=== PATIENT | female | born 1980 | race Caucasian/White ===

== ENCOUNTER → 2016-12-31 | Outpatient (CLI) | payer BC | END | disposition home or self-care (01) | LOC: GMAJ 16:34 | PROVIDERS: ATTEND Family Medicine | DX: R03.0 Elevated blood-pressure reading, without diagnosis of hypertension (principal) ==

== ENCOUNTER → 2017-03-17 | Outpatient (CLI) | payer BC ==
--- NOTE | 2017-03-18 14:51 | RAD ---
2 view abdomen. Indication: EPIGASTRIC PAIN Comparison: None. Impression: No free air. Bowel gas pattern nonspecific. No abnormal calcifications. No acute osseous abnormality. Electronically signed by: Armando Adhikari MD 03/18/2017 2:50 PM [employer]ACTOR [employer]PER[employer]
== END ==
LOC: RAD 16:18
PROVIDERS: ATTEND Surgery
DX: R10.13 Epigastric pain (principal)

== ENCOUNTER → 2017-07-09 | Outpatient (CLI) | payer BC ==
--- NOTE | 2017-07-09 10:50 | US ---
EXAM DESCRIPTION: Gall Bladder: ULTRASOUND. CLINICAL HISTORY: RUQ PAIN COMPARISON: None. TECHNIQUE: Transabdominal scannin-dimensional and Doppler modes. FINDINGS: Gallbladder: Contains multiple echogenic stones which are mobile with patient change in position. Largest stone 1.6 cm diameter. No fluid around the gallbladder. No wall thickening. 2.7 mm. Non-tender with transducer pressure. Common bile duct: caliber 3.0 mm within normal limits. Liver: Increased echogenicity; contour liver capsule smooth where seen. No fluid around the liver. Intrahepatic biliary ducts normal caliber. Doppler hepatopedal flow portal vein.. Long axis right lobe subjectively enlarged. Possible heterogeneous mass 4.8 x 3.6 cm in the "caudate" lobe nonvascular. Ill-defined hypoechoic lesion in the upper lobe measuring 2.1 x 1.8 cm nonvascular. Pancreas: normal size and echogenicity. Duct not seen. Proximal abdominal aorta: Not seen. IVC: visualized and normal caliber. Right kidney: long axis measures 11.9 cm. Normal Echogenicity. Normal cortical thickness. No hydronephrosis IMPRESSION: 1. Multiple gallstones, largest 1.6 cm, mobile. No tenderness with transducer pressure. No wall thickening or fluid. Normal caliber common bile duct. 2. Steatosis of the liver and mild hepatomegaly. Possible nonvascular masses in the superior right lobe and in the "caudate" lobe. No intrahepatic biliary dilatation. No ascites. Normal vascularity. Consider follow-up triple phase noncontrast and contrast CT scan for further evaluation. 2. Normal ultrasound of the pancreas and right kidney. CRITICAL COMMUNICATION: The critical value was discussed directly by phone with Dr. Anuel Drew at approximately 1045 hours, on 07/09/2017. Electronically signed by: Sumeet Connell MD 07/09/2017 10:49 AM [facility]
--- NOTE | 2017-07-09 15:49 | CT ---
EXAM DESCRIPTION: Abdomen w/wo Contrast: Computed tomography. CLINICAL HISTORY: LIVER MASS COMPARISON: Liver ultrasound earlier today. TECHNIQUE: Spiral-axial scans at 5.0 mm intervals through the abdomen before and after fall - phase post nonionic IV contrast: Arterial, portal, and delayed. No oral contrast. Coronal and sagittal 2.0 mm reconstructions. Delayed 10 minute helical axial 5.0 mm scans, liver through the upper pelvis. No adverse reactions. FINDINGS: Lung bases and pleura: Negative. Liver, stomach, adrenal glands, and spleen: On the precontrast image, there is a vague low-density in the lateral superior right liver lobe. This measures approximately 2.3 x 1.8 cm. In the caudate lobe is a low-density object measuring 4.0 x 3.0 cm. On the arterial phase images, the lesion in the subcapsular lateral right lobe is partially enhancing laterally. The mass in the caudate lobe shows trace enhancement superiorly and inferiorly slightly more enhancement with most of the mass, and the central medial and lateral margins remaining low-density. On the portal venous phase images, the lesion in the subcapsular lateral right lobe is partially enhancing posteriorly and inferiorly. The mass in the caudate lobe is enhancing superiorly and inferiorly with the central medial and lateral margins remaining low-density. On the 10 minute delayed images, most of the caudate lobe mass is enhancing except for the superior and posterior aspect. Most of the lesion in the lateral subcapsular right lobe is enhancing, some areas are low-density and some are isodense with the liver. The stomach is unremarkable. Liver and adrenal glands are negative. Pancreas/Gallbladder/Ducts: Gallbladder is visualized with a round low-density mass almost 2 cm in diameter in the anterior fundus. Duct is not well seen though it may be slightly dilated. Pancreas is negative. Kidneys: No radiodense stones or hydronephrosis bilaterally with normal contrast enhancement. Mesentery: No stranding free air or free fluid. No fascial thickening. Aorta: Uniform caliber and enhancement. Small Bowel: Minimal gas mostly fluid with normal caliber. Terminal Ileum/Cecum: Normal caliber of the terminal ileum. Entire cecum is not seen in the appendix is not seen. Colon: Mostly fecal material in the descending colon and gas in the transverse colon. Normal caliber. Spine: Mild spondylosis at L4-5 and Schmorl's node in the inferior L4 endplate. Abdominal Wall/Back Soft Tissues: Diastases at the umbilicus with no definite hernia. IMPRESSION: 1. Probable hemangiomas in the subcapsular lateral upper right hepatic lobe and in the caudate lobe of the liver. Since this latter mass is 4 cm in diameter, this would be characterized as a giant hemangioma. If further definition is needed clinically, consider multiphase MRI scan without and with gadolinium IV contrast. No intrahepatic duct dilation, smooth hepatic capsule, no ascites 2. Gallstone in the dependent gallbladder. 3. Minimal spondylosis at L4-5. CRITICAL COMMUNICATION: The critical value was discussed directly by phone with Dr. Anuel Drew at approximately 1515 hours, on July 09, 2017. Electronically signed by: Sumeet Connell MD 07/09/2017 3:48 PM [facility]
== END ==
LOC: US 08:50
PROVIDERS: ATTEND Surgery
DX: K80.20 Calculus of gallbladder without cholecystitis without obstruction (principal); D49.89 Neoplasm of unspecified behavior of other specified sites; M47.896 Other spondylosis, lumbar region; K76.0 Fatty (change of) liver, not elsewhere classified

== ENCOUNTER 2017-07-11 05:43 | Day surgery (SDC) | payer BC ==
[2017-07-11] MEDS ORDERED: SODIUM CHL 0.9% 100ML MINI-BAG 100 ML IVPB ONE (05:58)
[2017-07-11] MEDS ORDERED: LACTATED RINGERS 1,000 ML ONE (05:58)
[2017-07-11] MEDS ORDERED: ceFAZolin SODIUM 1 GM VIAL ONE (05:59)
[2017-07-11] MEDS ORDERED: NITROGLYCERIN 2% 1 GM UD TOP ONE (07:00)
[2017-07-11] MEDS ORDERED: METOCLOPRAMIDE HCL INJ 10 MG/2 ML VIAL ONE ×3 (07:00→11:17)
[2017-07-11] MEDS ORDERED: ONDANSETRON INJ 4 MG/2 ML VIAL ONE ×2 (07:00→11:11)
[2017-07-11] MEDS ORDERED: PROPOFOL 200 MG/20 ML VIAL IV ONE (07:00)
[2017-07-11] MEDS ORDERED: DEXAMETHASONE INJ 10 MG/ML VIAL ONE (07:00)
[2017-07-11] MEDS ORDERED: NEOSTIGMINE METHYLSULFATE 1 MG/ML ML IV ONE (07:00)
[2017-07-11] MEDS ORDERED: BUPIVACAINE 0.25% W/EPI 50 ML VIAL INJ ONE (07:35)
[2017-07-11] MEDS ORDERED: HEPARIN SODIUM (PORCINE) 10,000 UNITS/ML VIAL ONE (07:35)
[2017-07-11] MEDS ORDERED: LACTATED RINGERS 1,000 ML BAG IV ONE (07:55)
[2017-07-11] MEDS ORDERED: ROCURONIUM BROMIDE 10 MG/ML VIAL ONE (08:38)
[2017-07-11] MEDS ORDERED: fentaNYL CITRATE INJ 50 MCG/ML AMP ONE ×2 (08:38→11:05)
[2017-07-11] MEDS ORDERED: LIDOCAINE 2 % GEL 5 ML TUBE TOP ONE (08:39)
[2017-07-11] MEDS: LACTATED RINGERS 1,000 ML ONE ×2 (10:50→11:40)
--- NOTE | 2017-07-11 10:59 | OP ---
DATE OF PROCEDURE: 07/11/17 PREOPERATIVE DIAGNOSIS: 1. Symptomatic cholelithiasis. 2. Fatty infiltration of the liver. POSTOPERATIVE DIAGNOSIS: 1. Symptomatic cholelithiasis. 2. Chronic cholecystitis. 3. Fatting infiltration of the liver, pending pathology report. PROCEDURE: 1. Laparoscopic cholecystectomy with intraoperative cholangiography using fluoroscopy. 2. Wedge biopsy, right lobe of the liver. SURGEON: Anuel Drew MD. ENGLISH COMPOSITION INSTRUCTOR: None. ANESTHESIA: Local infiltration of 0.25% Marcaine with epinephrine and general endotracheal anesthesia. INDICATION: The patient is a 37-year-old female with a multiple year history of upper abdominal symptoms. Ultrasound revealed a single gallstone with no acute symptoms, but it also showed two masses in the liver. Three-phase CT scan was consistent with likely hemangioma. The patient was brought to the Surgical Suite today for cholecystectomy with cholangiograms and wedge biopsy of the liver after the risks, benefits and alternatives to the procedure were discussed and accepted. Both the CT scan and the ultrasound were consistent with fatty infiltration of the liver. FINDINGS: The liver biopsy is pending. There were adhesions to the gallbladder transplant for relapsed he omentum. Intraoperative cholangiography revealed free flow into the duodenum with no filling defects or strictures noted. There were some adhesions in the right pericolic gutter. No other pathology was identified . There was a stone in the gallbladder. DESCRIPTION OF PROCEDURE: After adequate general endotracheal anesthesia was obtained, the patient was prepped and draped in the usual sterile manner. Surgical time-out was taken. The infraumbilical area was infiltrated with local anesthesia. A curvilinear incision was fashioned and carried down through the subcutaneous tissue to the midline fascia. Traction sutures were placed on either side of the midline. A small incision was made in the midline fascia and the peritoneum was opened bluntly. Manny trocar was introduced under direct vision into the abdominal cavity and fixed in place with the traction sutures. CO2 was then insufflated until a pressure of 12 mmHg was reached and the abdomen was tympanitic in all four quadrants. When this was done, the laparoscope was introduced. The abdomen was inspected with the previously noted findings. The patient was then placed in reverse Trendelenburg position, turned to the left side. The upper abdominal ports were placed under direct vision. The gallbladder was grasped, retracted anteriorly and laterally. The neck of the gallbladder was retracted laterally. The adhesions to the neck of the gallbladder were taken down using blunt dissection. The triangle of Calot was then explored with the cystic duct and cystic artery identified and isolated. The cystic duct was hemoclipped once proximally. The cystic artery was hemoclipped twice proximally and once distally. A small incision was made in the cystic duct. The cholangiogram catheter was introduced through a separate stab wound in the right upper quadrant, introduced into the cystic duct and clipped in place. Cholangiograms were then taken using fluoroscopy which revealed free flow into the duodenum with no filling defects or strictures noted. When this was done, the cystic duct catheter was removed. The cystic duct was hemoclipped three times distally. The cystic duct and the cystic artery were then divided sharply and the gallbladder was then dissected free from the gallbladder bed of the liver using electrocautery. A small hole was made in the gallbladder and some bile was leaked. This was aspirated easily. The gallbladder was placed in an EndoCatch bag and removed from the infraumbilical port site in the usual manner under direct vision. When this was done, the subhepatic space and subphrenic space were irrigated copiously with saline. The effluent was noted to be clear. The had been some bile staining, so a sponge was placed over the brittany hepatis and left for some period of time. There was no bile leak or active bleeding identified. At this point, the wedge biopsy of the right lobe of the liver was performed with sharp scissors. The specimen was removed and then hemostasis was obtained with electrocautery turned up to 50. When hemostasis was finally obtained, again, the subhepatic space and subphrenic space were irrigated copiously with saline. The effluent was noted to be clear. There was adequate hemostasis. No bile or blood was noted in the gallbladder bed of the liver or the brittany hepatis. The upper abdominal ports were removed under direct vision. The site from the cholangiogram catheter introducer had some bleeding which was controlled with electrocautery. When hemostasis was noted to be adequate, the CO2, the laparoscope and the infraumbilical port were removed. The infraumbilical port site fascia was approximated with a single [id number] suture of 0 Vicryl. Subcutaneous tissue was irrigated with saline. Skin edges were approximated with 4-0 Vicryl subcuticular sutures, benzoin and Steri-Strips. Sterile dressings were applied. The patient was awakened and taken to the Recovery Room in good and stable condition. Estimated blood loss was less than 50 mL. All sponge, needle and instrument counts were correct. #[id number] [facility]
[2017-07-11] MEDS ORDERED: PROMETHAZINE HCL INJ 25 MG/ML VIAL ONE (11:29)
[2017-07-11] MEDS ORDERED: SODIUM CHL 0.9% 50ML MIN-BAG+ 50 ML IVPB ONE (11:29)
[2017-07-11 14:43] VITALS: BP 133/82; TEMP 98.1; O2SAT 100
== END 2017-07-11 14:00 | disposition home or self-care (01) ==
LOC: AMB 05:43
PROVIDERS: ATTEND Surgery
DX: K80.10 Calculus of gallbladder with chronic cholecystitis without obstruction (principal); K82.8 Other specified diseases of gallbladder; K76.0 Fatty (change of) liver, not elsewhere classified; K21.9 Gastro-esophageal reflux disease without esophagitis
CPT/HCPCS: 00790; 36415; 47001; 47563; 76000; 80053; 81001; 81025; 85025; J0690; J1100; J1644; J2405; J2550; J2710; J2765; J3010; J3490; J7050; J7120

== ENCOUNTER → 2017-10-29 | Outpatient (CLI) | payer BC ==
--- NOTE | 2017-10-29 15:03 | MRI ---
EXAM DESCRIPTION: Lumbar Spine w/o Contrast : Magnetic Resonance Imaging. CLINICAL HISTORY: M51.27. Other intervertebral disc displacement, lumbosacral region. COMPARISON: CT abdomen 07/09/2017. TECHNIQUE: Multiplanar, multiple standard sequences, non contrast MRI, lumbar spine. FINDINGS: L5-S1: Disc desiccation and posterior disc space loss. Posterior midline disc bulge 3 mm. Inferior L5 endplate Schmorl's node and type II endplate reactive changes. Hypertrophied flavum ligaments with facets negative. Bilateral moderate foraminal narrowing. Moderate canal narrowing. L4-5: Disc desiccation and minimal anterior disc space loss. Anterior and lateral endplate Modic type II endplate reaction. Posterior left 6 to 7 mm disc protrusion impressing on the thecal sac and extending inferior to the disc space bridging the left subarticular recess and the descending left L5 nerve. Flavum ligament hypertrophy and arthrosis right facet. Left paracentral canal stenosis. Bilateral mild foraminal narrowing. L3-4: Normal disc signal and normal disc space. Minimal ligament hypertrophy and pedicle shortening with mild canal narrowing. Bilateral foramina are patent. L2-3: Disc and disc space and soft tissues unremarkable. L1-2: Disc and disc space and soft tissues unremarkable. Conus terminates at T1. T12-L1: Disc displacement soft tissues unremarkable. Reduced lordosis. No scoliosis. Paravertebral soft tissues negative.. Normal marrow signal in the remaining vertebral bodies and the posterior elements. Vertebral bodies are not compressed at any level. IMPRESSION: 1. Left posterior herniation of the L4-5 disc impinging the thecal sac and the descending right L5 nerve root and left subarticular recess. Mild left paracentral canal stenosis. Moderate spondylosis. 2. Mild spondylosis L5-S1. Moderate canal and bilateral foraminal stenosis. Electronically signed by: Sumeet Connell MD 10/29/2017 3:02 PM CDT
== END ==
LOC: MRI 08:58
PROVIDERS: ATTEND Family Medicine
DX: M51.27 Other intervertebral disc displacement, lumbosacral region (principal)

== ENCOUNTER → 2019-10-13 | Outpatient (CLI) | payer BC | LOC: GMAJ 16:40 | PROVIDERS: ATTEND Family Medicine | DX: R00.2 Palpitations (principal); R03.0 Elevated blood-pressure reading, without diagnosis of hypertension ==

== ENCOUNTER → 2019-10-13 | Outpatient (CLI) | payer BC | DX: R00.2 Palpitations (principal) ==